=== PATIENT | female | born 1965 | race Caucasian/White ===

== ENCOUNTER 2016-03-30 05:28 | Observation (INO) | payer OTHER ==
[2016-03-17 13:00] VITALS: BMI 37.0
[~2016-03-30] VITALS: Ht 170.2 cm; Wt 109.1 kg
[2016-03-30] VITALS (18 sets, daily range): BP systolic 124–148; BP diastolic 77–91; PULSE 70–105; TEMP 36.4–36.9; O2SAT 95–98; Ht 170.2 cm; Wt 109.1 kg
[~2016-03-30 05:28] MED LIST: B-COTAB53 PO; CALCTAB65 PO; CHOL1TAB42 PO; CHOL4POW3 PO; EPP3/2 IM; EST1 PO; FLUC100T4 PO; GLC/500 PO; MELO15TA4 PO; METH500T37 PO; MULT-506 PO; NYSCR30 EXT; OMEP40CA PO; OXYC1TAB3 PO; PLQ200 PO; TOFA1TAB PO
[2016-03-30] MEDS ORDERED: CEFAZOLIN 2000 MG/60 ML D5W IV SCH (06:00)
[2016-03-30] MEDS ORDERED: PREGABALIN 75 MG CAP PO SCH (06:00)
[2016-03-30] MEDS ORDERED: LACTATED RINGER'S 1000ML 1,000 ML IV SCH (06:00)
[2016-03-30] MEDS ORDERED: ATROPINE SULFATE 0.1 MG/ML 5ML SYR IV PRN (06:45)
[2016-03-30] MEDS ORDERED: EpHEDrine SULFATE INJ 50 MG/ML AMP IV PRN (06:45)
[2016-03-30] MEDS ORDERED: ONDANSETRON INJ 2 MG/ML 2 ML VIAL IV PRN ×2 (06:45→08:00)
[2016-03-30] MEDS ORDERED: FENTANYL CITRATE INJ 50 MCG/1 ML 2 ML VIAL ONE ×2 (06:48→07:59)
[2016-03-30] MEDS ORDERED: PROPOFOL IV EMULSION 10 MG/ML 20 ML VIAL IV ONE (06:48)
[2016-03-30] MEDS ORDERED: MIDAZOLAM HCL 1 MG/ML 2ML VIAL ONE (06:48)
[2016-03-30] MEDS ORDERED: ONDANSETRON INJ 2 MG/ML 2 ML VIAL ONE (06:48)
[2016-03-30] MEDS ORDERED: ROCURONIUM BROMIDE 10 MG/ML 5 ML VIAL ONE (06:48)
[2016-03-30] MEDS ORDERED: DEXAMETHASONE SOD INJ 4 MG/ML VIAL ONE (06:48)
[2016-03-30] MEDS ORDERED: LIDOCAINE 2% 20 MG/ML 5ML SYR ONE (06:48)
--- NOTE | 2016-03-30 07:19 | History and Physical ---
History & Physical Date Mar 30, 2016. Chief Complaint neck and left arm pain History of Present Illness The patient is a 50 year old female with complaints of above for years who failed non op treatment. MRI shoewd C5-7 stenosis and DDD. numbness into rakesh hands, no weakness. no myelopathic symptoms Past Medical/Surgical History RA obesity migraines fibro Additional History Hepatic Disease: No Endocrine Disorder: No Kidney Disease: No Hypertension: No Heart Disease: No Bleeding Tendencies: No Infectious Diseases: No Allergies Coded Allergies: Acetaminophen (Verified Allergy, Mild, HEART RACES, 03/30/16) Aspirin (Verified Allergy, Mild, HEART RACES, 03/30/16) Caffeine (Verified Allergy, Mild, HEART RACES, 03/30/16) Hydrocodone (Verified Allergy, Mild, ITCHY, 03/30/16) Sulfasalazine (Verified Allergy, Mild, HEADACHE, 03/30/16) Tramadol (Verified Allergy, Mild, HEADACHE, 03/30/16) Leflunomide (Verified Allergy, Unknown, CANT REMEMBER, 03/30/16) Orphenadrine (Verified Allergy, Unknown, CANT REMEMBER, 03/30/16) Propoxyphene (Verified Allergy, Unknown, CANT REMEMBER, 03/30/16) Sodium Metabisulfite (Verified Allergy, Unknown, CANT REMEMBER, 03/30/16) Home Medications Scheduled B-Complex W/ Folic Acid (B Complex), 1 TAB PO QAM Calcium Carbonate-Vitamin D (Calcium 500 + D), 1 TAB PO HS Cholecalciferol (Vitamin D), 10,000 INTUNIT PO WEEKLY Cholestyramine (Cholestyramine), 1 DOSE PO HS Epinephrine (Epipen), 0.3 MG IM UD Estradiol (Estradiol), 1 MG PO QAM Fluconazole (Diflucan), 100 MG PO 03/20/16 Hydroxychloroquine Sulfate (Hydroxychloroquine Sulfat), 200 MG PO BID Meloxicam (Mobic), 15 MG PO QAM Metformin Hcl (Glucophage), 500 MG PO QPM Multivitamin (Multivitamin), 1 TAB PO QAM Omeprazole (Prilosec), 40 MG PO QAM Tofacitinib Citrate (Xeljanz), 5 MG PO BID Scheduled PRN Methocarbamol (Robaxin), 500 MG PO BID PRN for PRN Oxycodone Ir (Roxicodone Ir), 5 MG PO Q6H PRN for Pain Miscellaneous Medications Nystatin (Nystatin Cream), 0 EXT Physical Examination Skin: warm/dry Eyes: normal inspection ENT: normal ENT inspection Head: normocephalic, atraumatic Neck: supple, trachea midline Respiratory/Chest: lungs clear, no respiratory distress Cardiovascular: regular rate, rhythm Back: normal inspection Extremities: normal inspection, normal range of motion Neurologic/Psych: no motor/sensory deficits, alert, normal reflexes, oriented x 3 Diagnosis C5-7 stenosis/DDD Plan of Treatment C5-7 ACDF
[2016-03-30] MEDS ORDERED: NALOXONE HCL 0.4 MG/1 ML VIAL/CARP IV PRN (08:00)
[2016-03-30] MEDS ORDERED: LORAZEPAM INJ 0.5 MG in SYRINGE 0.75 ML IV PRN (08:00)
[2016-03-30] MEDS ORDERED: DEXAMETHASONE INJ 8 MG in SYRINGE 0 ML IV PRN (08:00)
[2016-03-30] MEDS ORDERED: LORAZEPAM 0.5 MG TAB PO PRN (08:00)
[2016-03-30] MEDS ORDERED: RACEPINEPHRINE 2.25% NEBU SOLN 0.5 ML VIAL INH PRN (08:00)
[2016-03-30] MEDS ORDERED: EPINEPHRINE ADULT AUTO-INJECT 0.3 MG SYR IM SCH (08:00)
[2016-03-30] MEDS ORDERED: BACITRACIN 50000 UNIT VIAL IR ONE (08:10)
[2016-03-30] MEDS ORDERED: THROMBIN 5000 UNITS KIT TOP ONE (08:10)
[2016-03-30] MEDS ORDERED: FLOSEAL HEMOSTATIC MATRIX 5ML TOP ONE (08:40)
[2016-03-30] MEDS ORDERED: GLYCOPYRROLATE INJ 0.2 MG/ML VIAL ONE (08:45)
[2016-03-30] MEDS ORDERED: NEOSTIGMINE METHYLSULFATE 1 MG/ML 10ML VIAL ONE (08:45)
--- NOTE | 2016-03-30 08:46 | [facility] Post Operative Brief Note ---
Immediate Operative Summary Operative Date Mar 30, 2016. Pre-Operative Diagnosis C5-7 stenosis, degenerative disc disease Post-Operative Diagnosis Same as pre-operative diagnosis Procedure(s) Performed C5-C7 Anterior Cervical Discectomy and Fusion; PEEK; Allograft Surgeon Dr. Fabián Sheldon Cfo Controller Surgeon(s) Dale Lanier PA-C Estimated Blood Loss 50ml Findings dict Specimens None per surgeon
[2016-03-30] MEDS ORDERED: OXYC1TAB3 PO (08:56)
--- NOTE | 2016-03-30 08:57 | Discharge Instructions ---
Discharge Instructions Admission Reason for Admission: Cervical Spinal Stenosis Discharge Discharge Diagnosis / Problem: Cervical Stenosis Discharge Goals Goal(s): Decrease discomfort, Improve function, Increase independence Activity Recommendations Activity Limitations: as noted below Lifting Limitations: no more than 5 pounds Exercise/Sports Limitations: until after follow-up appointment May Resume Sexual Activity: after follow-up appointment Shower/Bathe: may shower/bathe in 3 days . Instructions / Follow-Up Instructions / Follow-Up ACTIVITY RECOMMENDATIONS: SELF CARE INSTRUCTIONS AFTER CERVICAL FUSIONS 1. No smoking. Smoking drastically decreases the chance of a solid fusion. 2. No bending, lifting more than 5 pounds, or twisting (roll like a log when turning in bed). 3. You may shower 3 days after surgery. Thoroughly dry wound. Do not soak in the tub. 4. Cervical collar: Must be worn at all times including sleeping. You may remove the brace only to bath, eat and if you are sitting in a recliner. 5. Please walk as much as you can for exercise. Gradually increase the distance that you walk as your endurance increases. SPECIAL CARE INSTRUCTIONS: VERY IMPORTANT TO READ AND REVIEW A. Do not take any anti-inflammatory medications (i.e. Indocin, Advil, Aspirin, Naprosyn, Aleve, Motrin, etc.) as these may inhibit the chance of a solid fusion. Tylenol is okay to take. B. Your surgical incision has been closed with a cosmetic suture under the skin that will dissolve in about 6 weeks. In 14 days, you can use a pair of clean scissors and cut the suture that is left outside of the skin at the ends of your incision. C. Complications are uncommon, but please contact us if you have any signs or symptoms of: 1. wound infection (fever higher than 102.5 degrees F, redness, separation of wound, drainage, or increasing pain from the incision) 2. blood clots in legs (pain, swelling, redness and warmth in legs) 3. urinary tract infection (fever higher than 102.5 degrees, burning upon urination or increased frequency of urination) 4. nerve problems (inability to walk on your toes or heels, numbness, loss of bowel or bladder control) 5. any other symptoms that concern you. D. Please call the office at if you have any concerns or questions about your operation or recovery. MANAGING PAIN AFTER SPINAL SURGERY 1. Narcotic medication is intended for short-term use and will be provided for surgical pain. Surgical pain usually lasts for a period of 4-6 weeks. Narcotic medication includes Percocet, Vicodin, Darvocet, Tylenol #3 or Lortab. 2. Longer-term pain is more appropriately treated with non-narcotic medication such as Tylenol ES. 3. Muscle spasm is not appropriately treated with narcotics. Muscle relaxers such as Soma, Flexeril or Skelaxin can be used along with Tylenol ES. 4. Remember that we all live with some "aches and pains". This is not unusual or uncommon after an injury or as we get older. 5. We will provide appropriate medication within the normal guidelines of their prescribed use. We will also be very cautious and aware of potential abuse and extended duration of patients' medication needs. 6. Please allow 2-3 days to process refills. Prescriptions will not be mailed but must be picked up at the office. FOLLOW UP VISIT: Keep your scheduled follow-up appointment. Any questions, please call the office at . Current Hospital Diet Patient's current hospital diet: Clear Liquid Diet Discharge Diet Recommended Diet: Regular Diet Procedures Procedures Performed: C5-C7 Anterior Cervical Discectomy and Fusion; PEEK; Allograft Pending Studies Studies pending at discharge: no Medical Emergencies . Who to Call and When: Medical Emergencies: If at any time you feel your situation is an emergency, please call 911 immediately. . Non-Emergent Contact Non-Emergency issues call your: Surgeon Call Non-Emergent contact if: temperature is above 101, your pain is not controlled, your pain is worsening, your pain is unusual for you, your pain is concerning you, wound has increased drainage, wound has increased redness, wound has increased pain, you have any medication questions . "Provider Documentation" section prepared by Dale Lanier. VTE Core Measure Inpt VTE Proph given/why not?: Ashley Bee
[2016-03-30] MEDS ORDERED: IV FLUIDS COMPLETED PRN (09:00)
[2016-03-30] MEDS: HYDROXYCHLOROQUINE SULFATE 200 MG TAB PO SCH ×2 (09:00→20:42)
[2016-03-30] MEDS: ESTRADIOL 1 MG TAB PO SCH (09:00)
[2016-03-30] MEDS: PANTOprazole SOD 40 MG TAB PO SCH (09:00)
[2016-03-30] MEDS: FENTANYL CITRATE INJ 50 MCG/1 ML 2 ML VIAL IV PRN ×5 (09:16→09:46)
--- NOTE | 2016-03-30 10:05 | Anesthesiology Progress Note ---
Anesthesia Post Op Note Date & Time Mar 30, 2016 at 10:05 Vital Signs Pain Intensity: 6 Vital Signs Past 12 Hours Date Time Temp Pulse Resp B/P Pulse Ox O2 Delivery O2 Flow Rate FiO2 03/30/16 09:55 99 12 148/93 97 Nasal Cannula 4 03/30/16 09:45 91 10 127/71 97 Nasal Cannula 4 03/30/16 09:35 102 15 115/105 97 Nasal Cannula 4 03/30/16 09:25 107 14 133/79 97 Mask 10 03/30/16 09:15 112 16 133/79 97 Mask 10 03/30/16 09:09 36.3 119 18 135/88 97 Mask 10 03/30/16 06:00 36.7 80 18 124/81 95 Room Air Notes Mental Status: alert / awake / arousable, participated in evaluation Pt Amnestic to Procedure: Yes Nausea / Vomiting: adequately controlled Pain: adequately controlled Airway Patency, RR, SpO2: stable & adequate BP & HR: stable & adequate Hydration State: stable & adequate Anesthetic Complications: no major complications apparent
--- NOTE | 2016-03-30 10:05 | DIAGNOSTIC IMAGING REPORT ---
INTRAOPERATIVE RADIOGRAPHS CLINICAL HISTORY: C5-C7 spinal fusion. Fluoroscopy time: 8 seconds. FINDINGS: 2 spot fluoroscopic views of the cervical spine are presented. There are changes from anterior spinal fusion at C5-C6 and C6-C7. There has likely been discectomy at these levels. Vertebral body alignment is preserved. An endotracheal tube is in place. IMPRESSION: Intraoperative images from C5 to C7 spinal fusion as above. Electronically signed by: Jarvis Sauer M.D. 03/30/2016 10:03 AM Dictated Date/Time: 03/30/2016 10:02 AM
[2016-03-30] MEDS ORDERED: HYDROmorphone INJ 1 MG/ML SYR IV PRN (11:30)
[2016-03-30] MEDS: SODIUM CHLORIDE 0.9% 1000ML 1,000 ML IV SCH ×2 (11:47→20:41)
[2016-03-30] MEDS: OXYCODONE HCL IR 5 MG TAB (IMMEDIATE RELEASE) PO PRN ×3 (11:51→20:38)
--- NOTE | 2016-03-30 14:15 | Medical Consult ---
Consultation Date of Consultation: Mar 30, 2016. Attending Physician: Fabián Sheldon M.D. Reason for Consultation: Post Op Medical Management History of Present Illness 50 year old female s/p C5-[address] Sheldon. Patient has been having increasing neck pain, headaches, and BL arm numbness and tingling. She failed outpatient conservative measures and therefore presented for the planned procedure today. Post operatively the patient is doing well. She reports her pain is well controlled. She has some tingling to her BL shoulders. No chest pain or shortness of breath. Denies difficulty swallowing. She denies lightheadedness and dizziness. No abdominal pain, nausea, or vomiting. 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 (2) Fibromyalgia Status: Chronic (3) IBS (irritable bowel syndrome) Status: Chronic (4) Migraine Status: Chronic (5) PCOS (polycystic ovarian syndrome) Status: Chronic (6) Rheumatoid arthritis Status: Chronic Surgical Problems: (1) H/O dilation and curettage Status: Chronic (2) H/O hernia repair Status: Chronic (3) History of appendectomy Status: Chronic (4) History of hysterectomy Status: Chronic (5) History of tonsillectomy and adenoidectomy Status: Chronic (6) Hx of cholecystectomy Status: Chronic (7) Previous section Status: Chronic Family History Diabetes mellitus GRANDFATHER Social History Smoking Status: Never Smoker Alcohol Use: occasionally Allergies Coded Allergies: Acetaminophen (Verified Allergy, Mild, HEART RACES, 03/30/16) Aspirin (Verified Allergy, Mild, HEART RACES, 03/30/16) Hydrocodone (Verified Allergy, Mild, ITCHY, 03/30/16) Sulfasalazine (Verified Allergy, Mild, HEADACHE, 03/30/16) Tramadol (Verified Allergy, Mild, HEADACHE, 03/30/16) Leflunomide (Verified Allergy, Unknown, CANT REMEMBER, 03/30/16) Orphenadrine (Verified Allergy, Unknown, CANT REMEMBER, 03/30/16) Propoxyphene (Verified Allergy, Unknown, CANT REMEMBER, 03/30/16) Sodium Metabisulfite (Verified Allergy, Unknown, CANT REMEMBER, 03/30/16) Home Medications Active Roxicodone Ir (Oxycodone HCl) 5 Mg Tab 5 Mg PO Q6H PRN Reported Nystatin Cream (Nystatin) 90 Appln/30 Gm Cr 0 EXT APPLY TO AFFECTED AREA BID YEAST INFECTION Diflucan (Fluconazole) 100 Mg Tab 100 Mg PO 03/20/16 Estradiol 1 Mg Tab 1 Mg PO QAM Hydroxychloroquine Sulfat (Hydroxychloroquine Sulfate) 200 Mg Tab 200 Mg PO BID OFF SINCE 02/29/16 Vitamin D (Cholecalciferol) 5,000 Unit Tab 10,000 Intunit PO WEEKLY Multivitamin (Multivitamins) Tab 1 Tab PO QAM Epipen (Epinephrine) 0.3 Mg/0.3 Ml Inj 0.3 Mg IM UD Calcium 500 + D (Calcium Carbonate-Vitamin D) 1 Tab Tab 1 Tab PO HS B Complex (B-Complex W/ Folic Acid) 1 Tab Tab 1 Tab PO QAM Cholestyramine 4 Gm/Dose Pow 1 Dose PO HS Prilosec (Omeprazole) 40 Mg Capcr 40 Mg PO QAM Mobic (Meloxicam) 15 Mg Tab 15 Mg PO QAM STOP 03/23/16 Robaxin (Methocarbamol) 500 Mg Tab 500 Mg PO BID PRN Glucophage (Metformin Hcl) 500 Mg Tab 500 Mg PO QPM Xeljanz (Tofacitinib Citrate) 5 Mg Tab 5 Mg PO BID STOPPED SINCE 02/29/16 Current Inpatient Medications Current Inpatient Medications Medications (Trade) Dose Ordered Sig/Lul Route Start Time Stop Time Status Last Admin Dose Admin Lactated Ringer's 1,000 ml @ 15 mls/hr Q24H IV 03/30/16 06:00 03/31/16 05:59 03/30/16 06:30 15 MLS/HR Cefazolin Sodium (Ancef 2000mg/60 ml D5W) 60 ml @ 100 mls/hr PREOP IV 03/30/16 06:00 03/30/16 18:00 03/30/16 07:24 100 MLS/HR Pregabalin (Lyrica Cap) 75 mg PREOP PO 03/30/16 06:00 03/30/16 23:59 03/30/16 06:38 75 MG Estradiol (Estrace Tab) 1 mg QAM PO 03/30/16 09:00 04/29/16 08:59 Hydroxychloroquine Sulfate (Plaquenil Tab) 200 mg BID PO 03/30/16 09:00 04/29/16 08:59 Pantoprazole Sodium (Protonix Tab) 40 mg QAM PO 03/30/16 09:00 04/29/16 08:59 Racepinephrine (Raccemic Epinephrine 2.25% 0.5ML Neb) 0.5 ml ONE PRN INH 03/30/16 08:00 Hydromorphone HCl (Dilaudid Inj) 0.5 mg Q3H PRN IV 03/30/16 08:00 04/13/16 07:59 Ondansetron HCl 4 mg 4 mg Q6 PRN IV 03/30/16 08:00 04/29/16 07:59 Cefazolin Sodium/ Dextrose (Ancef Iv/D5 50ml) 55 ml @ 100 mls/hr Q8H IV 03/30/16 16:00 03/31/16 08:32 Lorazepam 0.5 mg 0.5 mg Q8H PRN PO 03/30/16 08:00 04/29/16 07:59 Lorazepam 0.5 mg/ Syringe 1 ml @ 1 mls/min Q8H PRN IV 03/30/16 08:00 04/29/16 07:59 Sodium Chloride (Nss 1000ml) 1,000 ml @ 80 mls/hr [id number] IV 03/30/16 07:46 03/31/16 07:45 03/30/16 11:47 80 MLS/HR Oxycodone HCl 5mg for pain scale 4-6 1... Q4H PRN PO 03/30/16 08:00 04/13/16 07:59 03/30/16 11:51 10 MG Dexamethasone Sodium Phosphate/ Syringe (Decadron Inj/ Syringe) 2 ml @ 1 mls/min ONE PRN IV 03/30/16 08:00 Naloxone HCl (Narcan Inj) 0.1 mg Q5M PRN IV 03/30/16 08:00 04/29/16 07:59 Miscellaneous (Iv Fluids Completed) 1 ea PRN PRN N/A 03/30/16 09:00 03/30/17 08:59 Hydromorphone HCl (Dilaudid Inj) 1 mg Q3H PRN IV 03/30/16 11:30 04/13/16 11:29 Review of Systems 10 point review of systems was completed with the pertinent positives and negatives noted per the HPI Physical Exam Date Time Temp Pulse Resp B/P Pulse Ox O2 Delivery O2 Flow Rate FiO2 03/30/16 13:41 36.4 97 14 125/81 97 Nasal Cannula 4.0 Humidified Oxygen 03/30/16 12:30 92 16 137/86 97 Nasal Cannula 4.0 Humidified Oxygen 03/30/16 11:43 75 18 97 Nasal Cannula 3.0 03/30/16 11:38 97 16 148/87 96 3.0 03/30/16 11:01 93 16 145/85 98 3.0 03/30/16 11:00 97 Nasal Cannula 4.0 03/30/16 10:30 36.6 70 16 130/82 97 Nasal Cannula 4.0 03/30/16 10:30 97 Nasal Cannula 4.0 03/30/16 10:15 36.4 88 14 116/74 97 Nasal Cannula 4 03/30/16 10:05 101 18 121/58 98 Nasal Cannula 4 03/30/16 09:55 99 12 148/93 97 Nasal Cannula 4 03/30/16 09:45 91 10 127/71 97 Nasal Cannula 4 03/30/16 09:35 102 15 115/105 97 Nasal Cannula 4 03/30/16 09:25 107 14 133/79 97 Mask 10 03/30/16 09:15 112 16 133/79 97 Mask 10 03/30/16 09:09 36.3 119 18 135/88 97 Mask 10 03/30/16 06:00 36.7 80 18 124/81 95 Room Air General Appearance: no apparent distress Head: normocephalic Eyes: normal inspection ENT: hearing grossly normal Neck: + pertinent finding (s/p neck surgery, cerivcal collar in place, surgical dressing dry and intact, drain in place with scant amount of bloody drainage) Respiratory/Chest: chest non-tender, lungs clear, normal breath sounds Cardiovascular: regular rate, rhythm, no edema, normal peripheral pulses Abdomen/GI: normal bowel sounds, non tender, soft Extremities/Musculoskelatal: normal inspection, no calf tenderness Neurologic/Psych: no motor/sensory deficits, alert, normal mood/affect, oriented x 3 Skin: normal color, warm/dry Assessment & Plan S/P C5-7 ACDF - POD#0 - activity and wound care orders as per ortho - pain control with bowel regimen - PT/OT - monitor H/H for acute blood loss anemia and transfuse blood products PRN RHEUMATOID ARTHRITIS - on Plaquenil and Xeljanz - patient reports her brim flexer is having her hold these until at least 2 weeks post op DVT PROPHYLAXIS - deferred to surgery Thank you for this consultation. We will follow the patient with you during their hospital stay. You can reach a member of the [facility] 27/09 via pager @ . Attending Addendum: The patient was seen and examined Complains of sore neck Denies any other symptoms O/E HEENT-negative except recent surgery daily Hemodynamically stable Chest-clear to auscultate bilaterally Heart-regular Abdomen-benign,no masses Extremities-negative for any edema Labs and Imaging studies were reviewed Agree with the assessment and plan Dr Gabriella Buckley
[2016-03-30] MEDS: CEFAZOLIN IV 1,000 MG in DEXTROSE 5% 50ML 50 ML IV SCH ×2 (15:29→23:47)
[2016-03-30] MEDS ORDERED: NURSING DECISION MEDICATION ORDER SCH (15:30)
[2016-03-30] MEDS ORDERED: COUGH DROP (SUGAR FREE) LOZ 24 LOZ/1 BOX ONE (15:32)
[2016-03-30] MEDS ORDERED: COUGH DROP (SUGAR FREE) LOZ 24 LOZ/1 BOX PO PRN (16:00)
--- NOTE | 2016-03-30 16:20 | OPERATIVE REPORT ---
DATE OF OPERATION: 03/30/2016 PREOPERATIVE DIAGNOSES: 1. C5-C6 spinal stenosis. 2. C6-C7 spinal stenosis. 3. C5-C6, C6-C7 degenerative disc disease. POSTOPERATIVE DIAGNOSES: Same. PROCEDURES: 1. Anterior cervical discectomy and fusion and application of PEEK intervertebral spacer with local autograft and DBM putty C5-C6. 2. Anterior cervical discectomy and fusion with application of PEEK intervertebral spacer with local autograft and DBM putty C6-C7. 3. Anterior cervical instrumentation C5-C6, C6-C7 with LDR anterior cervical plate. SURGEON: Dr. Sheldon. CNC LASER OPERATOR: Dale Lanier PA-C. Please note he participated in all portions of the procedure and was critical for performance of the procedure. ANESTHESIA: General endotracheal anesthesia. COMPLICATIONS: None. ESTIMATED BLOOD LOSS: Minimal. DESCRIPTION OF PROCEDURE: After identification of patient and operative level, she was brought to the OR where she underwent induction of general anesthesia. She was then positioned supine on the [facility] OR table with all bony prominences well padded. Shoulders taped distally and the arms tucked at sides and well padded and the anterior neck was sterilely prepped and draped in usual fashion. Antibiotics were administered. Time-out was performed. Level was confirmed and skin incision was made on the right side of the neck at the level of the cricoid cartilage. I divided the platysma in line with the incision and performed routine anterior cervical exposure medial sternocleidomastoid with blunt dissection. I identified the presumptive disc space, the anterior osteophytes and confirmed level with fluoroscopy and marked with electrocautery. I mobilized longus colli from C5-C7 bilaterally, placed self-retaining cervical retractor. [place] pins in the body of C5 and C7 and applied distraction across the pins and did complete discectomies at C5-C6 and C6-C7. Posterior osteophytes were taken down with a zayra and I completed discectomy posteriorly and removed the posterior annulus and PLL both at C5-C6 and C6-C7 and did foraminotomies as necessary to fully decompress the neural foramina and palpated the nerve roots were decompressed bilaterally at each level. I then decorticated the endplates at C5-C6 with a high speed zayra, determined graft size with trial sizer and filled the PEEK cage with local bone and DBM putty and tamped into position. I then inserted the LDR blades through the cages. The insertion handles and C5-C6 and C6-C7 and impacted completed and provided good fixation. I then removed the insertion handles, irrigated, obtained final x-rays, confirmed hemostasis and then closed in layered fashion over a small round drain. All sponge and needle counts were correct at the end of the case. I attest to the content of the Intraoperative Record and any orders documented therein. Any exceptio ns are noted below.
[2016-03-30] MEDS: HYDROmorphone INJ 0.5 MG/0.5 ML SYR IV PRN (23:48)
[2016-03-31] VITALS (9 sets, daily range): BP systolic 115–136; BP diastolic 69–87; PULSE 74–90; TEMP 36.6–37.1; O2SAT 93–96
[2016-03-31] MEDS: OXYCODONE HCL IR 5 MG TAB (IMMEDIATE RELEASE) PO PRN ×3 (01:33→09:52)
[2016-03-31 06:08] LABS: HEMATOCRIT 37.2 % (37-47); MEAN CELL VOLUME 91.2 fL (80-100); MEAN CORPUSCULAR HEMOGLOBIN 29.9 pg (25-34); MEAN CORPUSCULAR HGB CONC 32.8 g/dl (32-36); MEAN PLATELET VOLUME 11.1 fL (7.4-10.4); PLATELET COUNT 304 K/uL (130-400); RED BLOOD COUNT 4.08 M/uL (4.2-5.4); WHITE BLOOD COUNT 15.69 K/uL (4.8-10.8)
[2016-03-31 06:33] LABS: BUN/CREATININE RATIO 10.7 (10-20); CALCIUM 8.3 mg/dl (8.5-10.1); CREATININE 0.78 mg/dl (0.60-1.20); POTASSIUM 3.5 mmol/L (3.5-5.1)
[2016-03-31] MEDS: HYDROmorphone INJ 0.5 MG/0.5 ML SYR IV PRN (06:34)
[2016-03-31] MEDS: CEFAZOLIN IV 1,000 MG in DEXTROSE 5% 50ML 50 ML IV SCH (07:18)
[2016-03-31] MEDS: HYDROXYCHLOROQUINE SULFATE 200 MG TAB PO SCH (08:31)
[2016-03-31] MEDS: ESTRADIOL 1 MG TAB PO SCH (08:32)
[2016-03-31] MEDS: PANTOprazole SOD 40 MG TAB PO SCH (08:32)
--- NOTE | 2016-03-31 09:38 | Anesthesiology Progress Note ---
Anesthesia Post Op Note Date & Time Mar 31, 2016 at 09:37 Vital Signs Pain Intensity: 4.0 Vital Signs Past 12 Hours Date Time Temp Pulse Resp B/P Pulse Ox O2 Delivery O2 Flow Rate FiO2 03/31/16 07:30 36.9 75 16 127/77 93 Room Air 03/31/16 07:30 Room Air 03/31/16 07:12 82 12 96 Room Air 03/31/16 05:30 36.6 79 18 136/85 93 Room Air 03/31/16 03:30 36.7 83 16 115/69 96 Nasal Cannula 2.0 03/31/16 03:02 74 12 95 Nasal Cannula 2.0 03/31/16 01:28 37.1 90 18 124/78 96 Nasal Cannula 2.0 03/30/16 23:30 36.9 16 142/77 96 Nasal Cannula 2.0 03/30/16 23:30 Nasal Cannula 2.0 03/30/16 23:10 94 14 96 Nasal Cannula 2.0 Notes Mental Status: alert / awake / arousable, participated in evaluation Pt Amnestic to Procedure: Yes Nausea / Vomiting: adequately controlled Pain: adequately controlled Airway Patency, RR, SpO2: stable & adequate BP & HR: stable & adequate Hydration State: stable & adequate Anesthetic Complications: no major complications apparent
--- NOTE | 2016-03-31 09:42 | Orthopedic Progress Note ---
Orthopedic Progress Note Date of Service Mar 31, 2016. Subjective Post OP Day: 1 Reports: feeling well, pain controlled w PO medications, Denies: SOB, calf pain , chest pain, complaints, light headedness, nausea / vomiting Additional Notes: Doing well, no issues, remain in collar, drain is empty. No arm pain, No numbness. Stable medically. Objective calves soft nontender, N/V intact, capillary refill less than 2 sec., dressing C /D/I, A&O x3, toes mobile, hemovac drainage Date Time Temp Pulse Resp B/P Pulse Ox O2 Delivery O2 Flow Rate FiO2 03/31/16 09:37 36.7 83 18 133/87 95 Room Air 03/31/16 07:30 36.9 75 16 127/77 93 Room Air 03/31/16 07:30 Room Air 03/31/16 07:12 82 12 96 Room Air 03/31/16 05:30 36.6 79 18 136/85 93 Room Air 03/31/16 03:30 36.7 83 16 115/69 96 Nasal Cannula 2.0 03/31/16 03:02 74 12 95 Nasal Cannula 2.0 03/31/16 01:28 37.1 90 18 124/78 96 Nasal Cannula 2.0 03/30/16 23:30 36.9 16 142/77 96 Nasal Cannula 2.0 03/30/16 23:30 Nasal Cannula 2.0 03/30/16 23:10 94 14 96 Nasal Cannula 2.0 03/30/16 21:31 36.7 18 129/84 97 Nasal Cannula 3.0 Humidified Oxygen 03/30/16 19:25 36.8 105 18 131/81 97 Nasal Cannula 4.0 Humidified Oxygen 03/30/16 19:03 103 16 96 Nasal Cannula 3.0 03/30/16 17:30 36.6 99 16 138/87 96 Nasal Cannula Humidified Oxygen 03/30/16 15:30 36.6 80 16 129/91 96 Nasal Cannula 4.0 Humidified Oxygen 03/30/16 15:20 100 18 96 Nasal Cannula 3.0 03/30/16 15:15 95 Nasal Cannula 4.0 Humidified Oxygen 03/30/16 15:00 36.7 90 18 133/84 95 Nasal Cannula 03/30/16 13:41 36.4 97 14 125/81 97 Nasal Cannula 4.0 Humidified Oxygen 03/30/16 12:30 92 16 137/86 97 Nasal Cannula 4.0 Humidified Oxygen 03/30/16 11:43 75 18 97 Nasal Cannula 3.0 03/30/16 11:38 97 16 148/87 96 3.0 03/30/16 11:01 93 16 145/85 98 3.0 03/30/16 11:00 97 Nasal Cannula 4.0 03/30/16 10:30 36.6 70 16 130/82 97 Nasal Cannula 4.0 03/30/16 10:30 97 Nasal Cannula 4.0 03/30/16 10:15 36.4 88 14 116/74 97 Nasal Cannula 4 03/30/16 10:05 101 18 121/58 98 Nasal Cannula 4 03/30/16 09:55 99 12 148/93 97 Nasal Cannula 4 03/30/16 09:45 91 10 127/71 97 Nasal Cannula 4 Laboratory Results 24 Hours: Test 03/31/16 05:20 Hematocrit 37.2 % Hemoglobin 12.2 g/dL Assessment & Plan Assessment: s/p cervical ACDF Plan: Change dressing, d/c drain, discharge home
--- NOTE | 2016-04-02 12:52 | DISCHARGE SUMMARY ---
PRINCIPAL DIAGNOSIS: Included C5-C6, C6-C7 spinal stenosis with degenerative disc disease. POSTOPERATIVE DIAGNOSIS: Same. PROCEDURE: ACDF C5-C6, C6-C7. SURGEON: Dr. Fabián Sheldon. CHRONIC CARE NURSE: Dale Lanier PA-C. HISTORY OF PRESENT ILLNESS: Please refer to EMR. HOSPITAL COURSE: On the above date of 03/30, Ms. Zambrano was admitted to [facility] with the above diagnosis. She was taken to preoperative holding where she was evaluated and cleared for surgical procedure. She was identified by Dr. Fabián Sheldon who again reviewed the procedure in detail and cleared for surgical management. She was transported to the operating room, introduced with general endotracheal anesthesia. Sterile conditions were set and she successfully underwent a C5-C6, C6-C7 ACDF without complication or issue. She was awakened in stable and satisfactory condition, transported to postoperative recovery where her vital signs and pain were monitored and managed. She remained medically stable and was taken to the orthopedic floor for continued postoperative care. Throughout her stay, vital signs and pain were monitored and managed. She remained in immobilization for stabilization and comfort issues. LALA drain output diminished throughout her stay, there were no incisional issues. Denied any difficulty breathing or swallowing. She had a stable postoperative night. She was evaluated on 03/31/2016 and indicated for return home. On this date, she was discharged from [facility]. DISPOSITION: Home. DISPOSITION CONDITION: Stable. NOTED COMPLICATIONS OR ISSUES: Zero. DISCHARGE INSTRUCTIONS: Please refer to EMR.
== END 2016-03-31 11:34 | disposition home or self-care (01) ==
LOC: ENRESERVDT → ENRESERVTM → C.ACU 05:28 → C.3E 07:50
PROVIDERS: ADMIT Orthopaedic Surgery Orthopaedic Surgery of the Spine; ATTEND Orthopaedic Surgery Orthopaedic Surgery of the Spine
DX: M48.02 Spinal stenosis, cervical region (principal); M50.322 Other cervical disc degeneration at C5-C6 level; M50.323 Other cervical disc degeneration at C6-C7 level; M06.9 Rheumatoid arthritis, unspecified; E66.9 Obesity, unspecified; Z79.899 Other long term (current) drug therapy; Z68.37 Body mass index [BMI] 37.0-37.9, adult; Z83.3 Family history of diabetes mellitus

== ENCOUNTER → 2017-06-13 | Day surgery (SDC) | payer OTHER ==
[2017-05-27 11:21] VITALS: Ht 170.2 cm; Wt 101.8 kg
[~2017-06-13] VITALS: Ht 170.2 cm; Wt 101.8 kg
[~2017-06-13] MED LIST changes: +CALC600T9 PO; -CALCTAB65 PO; -CHOL4POW3 PO; +CHOLPOW PO; -FLUC100T4 PO; -GLC/500 PO; +LIDOCAINE HCL 2% 2 ML VIAL (20MG/ML) ONE; +MELO-84 PO; -MELO15TA4 PO; -METH500T37 PO; -NYSCR30 EXT; -OMEP40CA PO; +OMEP40CA41 PO; +PHEN37.585 PO; +PROPOFOL IV EMULSION 10 MG/ML 20 ML VIAL IV ONE; +SODIUM CHLORIDE 0.9% 500ML 500 ML IV ONE
--- NOTE | 2017-06-13 11:35 | Endo History and Physical ---
History & Physical Date of Service: Jun 13, 2017. Chief Complaint: LLQ Pain, Constipation Referring Physician: Johnny Kitchen History of Present Illness 52 yo CF who presents for colonoscopy secondary to LLQ abdominal pain and constipation. Past Surgical History Hx Cardiac Surgery: No Hx Internal Defibrillator: No Hx Pacemaker: No Hx Abdominal Surgery: Yes (C SECTION, D&C, LAP LYSIS OF ADHESION X 2 , LEFT INGUINAL HERNIA REPAIR ) Hx of Implantable Prosthesis: No Hx Post-Op Nausea and Vomiting: No Hx Cancer Surgery: No Hx Thoracic Surgery: No Hx Orthopedic: No Hx Urinary Tract Surgery: No Family History Colon CA Social History Smoking Status: Former Smoker Hx Substance Use: No Hx Alcohol Use: Yes (OCCASIONALLY) Allergies Coded Allergies: Aspirin (Verified Allergy, Mild, HEART RACES, 06/13/17) Hydrocodone (Verified Allergy, Mild, ITCHY, 06/13/17) Sulfasalazine (Verified Allergy, Mild, HEADACHE, 06/13/17) Tramadol (Verified Allergy, Mild, HEADACHE, 06/13/17) BEE STING (Verified Allergy, Unknown, FACIAL SWELLING, 06/13/17) Leflunomide (Verified Allergy, Unknown, SEVERE HEADACHES, 06/13/17) Morphine (Verified Allergy, Unknown, ITCHING, 06/13/17) Nickel (Verified Allergy, Unknown, RASH, 06/13/17) Current Medications Reported Home Medications Medications Dose Route/Sig Max Daily Dose Days Date Category Roxicodone Ir (Oxycodone HCl) 5 Mg Tab 5 Mg PO Q6H PRN 05/27/17 Reported Calcium + D (Calcium Carbonate-Vitamin D) 1 Tab Tab 1 Tab PO QPM 05/27/17 Reported Adipex P (Phentermine HCl) 37.5 Mg Tab 37.5 Mg PO QAM 05/27/17 Reported Prilosec (Omeprazole) 40 Mg Cap 40 Mg PO QAM 05/27/17 Reported Mobic (Meloxicam) 15 Mg Tab 15 Mg PO QAM 05/27/17 Reported Cholestyramine (Cholestyramine (Bulk)) 1 Pow Pow 1 Dose PO QAM 05/27/17 Reported Estradiol 1 Mg Tab 1 Mg PO QAM 03/17/16 Reported Hydroxychloroquine Sulfat (Hydroxychloroquine Sulfate) 200 Mg Tab 200 Mg PO BID 03/17/16 Reported Vitamin D (Cholecalciferol) 5,000 Unit Tab 10,000 Intunit PO WEEKLY 03/17/16 Reported Multivitamin (Multivitamins) Tab 1 Tab PO QAM 03/17/16 Reported Epipen (Epinephrine) 0.3 Mg/0.3 Ml Inj 0.3 Mg IM UD 03/17/16 Reported B Complex (B-Complex W/ Folic Acid) 1 Tab Tab 1 Tab PO QAM 03/17/16 Reported Xeljanz (Tofacitinib Citrate) 5 Mg Tab 5 Mg PO BID 03/17/16 Reported Vital Signs Weight (Kilograms): 101.82 Height (Feet): 5 Height (Inches): 7 Date Time Temp Pulse Resp B/P (MAP) Pulse Ox O2 Delivery O2 Flow Rate FiO2 06/13/17 11:21 36.7 90 18 133/81 (98) 96 Room Air Physical Exam General Appearance: WD/WN, no apparent distress Respiratory/Chest: Auscultation: breath sounds normal Cardiovascular: Heart Auscultation: RRR Abdomen: Bowel Sounds: normal Inspection & Palpation: soft, non-distended, no tenderness, guarding & rebound Assessment and Plan Assessment: 52 yo CF who presents for colonoscopy secondary to LLQ abdominal pain and constipation. Plan: Proceed with colonoscopy.
--- NOTE | 2017-06-13 13:07 | Discharge Instructions ---
Endoscopy Patient Instructions Date / Procedure(s) Performed Jun 13, 2017. Colonoscopy Allergy Information Coded Allergies: Aspirin (Verified Allergy, Mild, HEART RACES, 06/13/17) Hydrocodone (Verified Allergy, Mild, ITCHY, 06/13/17) Sulfasalazine (Verified Allergy, Mild, HEADACHE, 06/13/17) Tramadol (Verified Allergy, Mild, HEADACHE, 06/13/17) BEE STING (Verified Allergy, Unknown, FACIAL SWELLING, 06/13/17) Leflunomide (Verified Allergy, Unknown, SEVERE HEADACHES, 06/13/17) Morphine (Verified Allergy, Unknown, ITCHING, 06/13/17) Nickel (Verified Allergy, Unknown, RASH, 06/13/17) Discharge Date / Findings Jun 13, 2017. Colon polyp Internal hemorrhoids Medication Instructions OK to resume all medications today as prescribed Reported Home Medications Medications Dose Route/Sig Max Daily Dose Days Date Category Roxicodone Ir (Oxycodone HCl) 5 Mg Tab 5 Mg PO Q6H PRN 05/27/17 Reported Calcium + D (Calcium Carbonate-Vitamin D) 1 Tab Tab 1 Tab PO QPM 05/27/17 Reported Adipex P (Phentermine HCl) 37.5 Mg Tab 37.5 Mg PO QAM 05/27/17 Reported Prilosec (Omeprazole) 40 Mg Cap 40 Mg PO QAM 05/27/17 Reported Mobic (Meloxicam) 15 Mg Tab 15 Mg PO QAM 05/27/17 Reported Cholestyramine (Cholestyramine (Bulk)) 1 Pow Pow 1 Dose PO QAM 05/27/17 Reported Estradiol 1 Mg Tab 1 Mg PO QAM 03/17/16 Reported Hydroxychloroquine Sulfat (Hydroxychloroquine Sulfate) 200 Mg Tab 200 Mg PO BID 03/17/16 Reported Vitamin D (Cholecalciferol) 5,000 Unit Tab 10,000 Intunit PO WEEKLY 03/17/16 Reported Multivitamin (Multivitamins) Tab 1 Tab PO QAM 03/17/16 Reported Epipen (Epinephrine) 0.3 Mg/0.3 Ml Inj 0.3 Mg IM UD 03/17/16 Reported B Complex (B-Complex W/ Folic Acid) 1 Tab Tab 1 Tab PO QAM 03/17/16 Reported Xeljanz (Tofacitinib Citrate) 5 Mg Tab 5 Mg PO BID 03/17/16 Reported Provider Instructions Activity Restrictions - No exercising or heavy lifting for 24 hours. - Do not drink alcohol the day of the procedure. - Do not drive a car or operate machinery until the day after the procedure. - Do not make any important decisions or sign important papers in 24 hours after the procedure. Following Day: - Return to full activity which may include returning to work/school. Diet Start your diet with liquids and light foods (jello, soup, juice, toast). Then eat your usual diet if not nauseated. Treatment For Common After Affects For mild abdominal pain, bloating, or excessive gas: - Rest - Eat lightly - Lie on right side Follow-Up Information Follow-up with Johnny Kitchen as scheduled Anesthesia Information What You Should Know You have had a procedure that required some medicine to reduce anxiety and discomfort. This treatment is called moderate sedation. After receiving the treatment, you may be sleepy, but you will be able to breathe on your own. The effects of the treatment may last for several hours. Follow these instructions along with Activity/Diet recommendations noted above: * Do NOT do anything where dizziness or clumsiness would be dangerous. * Rest quietly at home today, then you can be up and about tomorrow. * Have a responsible person stay with you the rest of today. * You may have had an I.V. today. If so, you may take the dressing off later today. Recommendations Call your doctor if: * Trouble breathing * Continuous vomiting for more than 24 hours * Temperature above 101 degrees * Severe abdominal pain or bloating * Pain not relieved by pain medicine ordered * There is increased drainage or redness from any incision * A large amount of rectal bleeding greater than 2-3 tablespoons. (If you had a polyp/s removed or have hemorrhoids, a small amount of blood - from the rectum is to be expected.) * You have any unanswered questions or concerns. IN THE EVENT OF A SERIOUS EMERGENCY, GO TO THE NEAREST EMERGENCY ROOM Your discharge instructions were prepared by provider Nicolás Muñoz. Patient Instructions Signature Page Rossi Zambrano Patient (or Guardian) Signature/Date: I have read and understand the instructions given to me by my caregivers. Caregiver/RN/Doctor Signature/Date: The above-named patient and/or guardian has received patient instructions on this date. + Original Patient Signature Page (only) stays with chart. Please make copy for patient.
--- NOTE | 2017-06-13 13:12 | GI REPORT ---
Procedure Date: 06/13/2017 12:47 PM Procedure: Colonoscopy Indications: Screening for colorectal malignant neoplasm Medicines: Monitored Anesthesia Care Complications: No immediate complications. Estimated Blood Loss: Estimated blood loss: none. Procedure: Pre-Anesthesia Assessment: - Prior to the procedure, a History and Physical was performed, and patient medications and allergies were reviewed. The patient's tolerance of previous anesthesia was also reviewed. The risks and benefits of the procedure and the sedation options and risks were discussed with the patient. All questions were answered, and informed consent was obtained. Prior Anticoagulants: The patient has taken no previous anticoagulant or antiplatelet agents. ASA Grade Assessment: II - A patient with mild systemic disease. After reviewing the risks and benefits, the patient was deemed in satisfactory condition to undergo the procedure. After I obtained informed consent, the scope was passed under direct vision. Throughout the procedure, the patient's blood pressure, pulse, and oxygen saturations were monitored continuously. The scope was introduced through the anus and advanced to the terminal ileum. The colonoscopy was performed without difficulty. The patient tolerated the procedure well. The quality of the bowel preparation was good. The terminal ileum, ileocecal valve, appendiceal orifice, and rectum were photographed. Findings: The perianal and digital rectal examinations were normal. A 3 mm polyp was found in the sigmoid colon. The polyp was sessile. The polyp was removed with a cold snare. Resection and retrieval were complete. Non-bleeding internal hemorrhoids were found during retroflexion. The hemorrhoids were small. Impression: - One 3 mm polyp in the sigmoid colon, removed with a cold snare. Resected and retrieved. - Non-bleeding internal hemorrhoids. Recommendation: - Resume previous diet. - Continue present medications. - Repeat colonoscopy for surveillance based on pathology results. - Return to primary care physician as previously scheduled. Nicolás Muñoz, 06/13/2017 1:12:20 PM This report has been signed electronically. Note Initiated On: 06/13/2017 12:47 PM I attest to the content of the Intraoperative Record and orders documented therein, exceptions below
[2017-06-13 13:40] VITALS: BP 118/80; PULSE 85; O2SAT 97
--- NOTE | 2017-06-13 14:05 | Anesthesiology Progress Note ---
Anesthesia Post Op Note Date & Time Jun 13, 2017 at 14:05 Vital Signs Pain Intensity: 5 Vital Signs Past 12 Hours Date Time Temp Pulse Resp B/P (MAP) Pulse Ox O2 Delivery O2 Flow Rate FiO2 06/13/17 13:40 85 20 118/80 (93) 97 Room Air 06/13/17 13:20 82 18 117/74 (88) 97 Room Air 06/13/17 13:08 86 16 114/79 (91) 96 Room Air 06/13/17 11:21 36.7 90 18 133/81 (98) 96 Room Air Notes Mental Status: alert / awake / arousable, participated in evaluation Pt Amnestic to Procedure: Yes Nausea / Vomiting: adequately controlled Pain: adequately controlled Airway Patency, RR, SpO2: stable & adequate BP & HR: stable & adequate Hydration State: stable & adequate Anesthetic Complications: no major complications apparent
== END | disposition home or self-care (01) ==
LOC: C.GI 10:45
PROVIDERS: ATTEND Internal Medicine
DX: R10.32 Left lower quadrant pain (principal); K59.00 Constipation, unspecified; D12.5 Benign neoplasm of sigmoid colon; K57.30 Diverticulosis of large intestine without perforation or abscess without bleeding; K64.8 Other hemorrhoids; Z80.0 Family history of malignant neoplasm of digestive organs; Z79.82 Long term (current) use of aspirin; Z88.5 Allergy status to narcotic agent; Z88.2 Allergy status to sulfonamides; Z91.030 Bee allergy status; Z91.048 Other nonmedicinal substance allergy status; Z90.89 Acquired absence of other organs; Z98.49 Cataract extraction status, unspecified eye; Z98.1 Arthrodesis status; Z90.49 Acquired absence of other specified parts of digestive tract; Z90.710 Acquired absence of both cervix and uterus; Z87.891 Personal history of nicotine dependence